=== PATIENT | male | born 1950 | race Native Hawaiian/Other Pacific Islander ===

== ENCOUNTER 2024-02-29 15:30 | Emergency (ER) | payer OTHER, SELFPAY ==
[2024-02-29] VITALS (7 sets, daily range): BP systolic 109–147; BP diastolic 63–67; PULSE 82–88; RESP 18; TEMP 36.6–37.9; O2SAT 93–99; BMI 29.7
--- NOTE | 2024-02-29 15:53 | DI.RAD.S_ITS ---
PROCEDURE: XR SHOULDER RT MIN 2V INDICATIONS: fall/pain TECHNIQUE: 3 views of the shoulder were acquired. COMPARISON: None. FINDINGS: Bones: No fractures or dislocations. Mild acromioclavicular and glenohumeral joint degeneration. No suspicious bony lesions. Visualized ribs appear intact. Soft tissues: No suspicious soft tissue calcifications. IMPRESSION: No acute bony abnormality. Dictated by: Lewis Tse M.D. on 02/29/2024 at 16:27 Approved by: Lewis Tse M.D. on 02/29/2024 at 16:28
--- NOTE | 2024-02-29 15:53 | DI.RAD.S_ITS ---
PROCEDURE: XR ELBOW RT 2V INDICATIONS: fall/pain TECHNIQUE: 2 views of the elbow were acquired. COMPARISON: None. FINDINGS: Bones: No fractures or dislocations. No suspicious bony lesions. Soft tissues: No elbow joint effusion. No suspicious soft tissue calcifications. IMPRESSION: No acute osseous abnormality. If pain persists with conservative management, consider repeat x-ray in 10-14 days or cross-sectional imaging. Dictated by: Lewis Tse M.D. on 02/29/2024 at 16:28 Approved by: Lewis Tse M.D. on 02/29/2024 at 16:29
--- NOTE | 2024-02-29 20:10 | ED.GENADULT ---
HPI - General Adult General Chief complaint: Extremity Injury, Upper Stated complaint: Fell off bed yesterday, Right shoulder pain Time Seen by Provider: 02/29/24 19:28 Source: patient Mode of arrival: Ambulatory History of Present Illness HPI narrative: 73-year-old male with reported history of lymphoma year old male with reported history of lymphoma, not on chemo or radiation presents by EMS from home for right shoulder pain. Patient stated that he fell out of bed yesterday but did not hit his head and landed on his right shoulder and his right elbow. Upon my evaluation patient is also complaining of generalized weakness, bilateral hamstring pain, and fatigue. Initial vitals notable for temperature of 98? F, when he was taken back to an ER bed his temperature was 100.3? Related Data Allergies Allergy/AdvReac Type Severity Reaction Status Date / Time No Known Drug Allergies Allergy Verified 02/29/24 15:48 Review of Systems Review of Systems Narrative: See HPI Patient History Social History Smoking Status: Never smoker Smoking Status: Never smoker Substance Use Type: does not use Exam Initial Vital Signs Initial Vital Signs: Vital Signs Temperature 98 F 02/29/24 15:48 Pulse Rate 87 02/29/24 15:48 Respiratory Rate 18 02/29/24 15:48 Blood Pressure 109/67 02/29/24 15:48 Pulse Oximetry 96 02/29/24 15:48 Oxygen Delivery Method Room Air 02/29/24 15:48 Const: Awake, alert, appears chronically unwell, fatigued Cardiac: regular rate, regular rhythm RESP: unlabored, clear bilaterally, no wheezing MSK: Generalized tenderness over right shoulder, no deformity, slight decreased ROM due to pain Skin: Warm, Dry, intact, no rashes Neuro: AO x3, CN II-XII grossly intact, moves all extremities Course Orders Ordered: ED Orders 02/29/24 20:09 EKG-12 Lead Stat Vital Signs Vital signs: Vital Signs - 8 hr 02/29/24 19:30 02/29/24 20:00 02/29/24 20:30 Pulse Rate 82 85 86 Respiratory Rate Blood Pressure Pulse Oximetry 97 95 94 02/29/24 21:00 02/29/24 22:18 Pulse Rate 88 85 Respiratory Rate 18 18 Blood Pressure 147/66 H Pulse Oximetry 93 99 Medical Decision Making Imaging Data Extremity x-ray #1: Radiologist's Impression: PROCEDURE: XR ELBOW RT 2V INDICATIONS: fall/pain TECHNIQUE: 2 views of the elbow were acquired. COMPARISON: None. FINDINGS: Bones: No fractures or dislocations. No suspicious bony lesions. Soft tissues: No elbow joint effusion. No suspicious soft tissue calcifications. IMPRESSION: No acute osseous abnormality. If pain persists with conservative management, consider repeat x-ray in 10-14 days or cross-sectional imaging. Dictated by: Lewis Tse M.D. on 02/29/2024 at 16:28 Approved by: Lewis Tse M.D. on 02/29/2024 at 16:29 Extremity x-ray #2: Radiologist's Impression: PROCEDURE: XR SHOULDER RT MIN 2V INDICATIONS: fall/pain TECHNIQUE: 3 views of the shoulder were acquired. COMPARISON: None. FINDINGS: Bones: No fractures or dislocations. Mild acromioclavicular and glenohumeral joint degeneration. No suspicious bony lesions. Visualized ribs appear intact. Soft tissues: No suspicious soft tissue calcifications. IMPRESSION: No acute bony abnormality. MDM Narrative Medical decision making narrative: Patient presents for evaluation of shoulder injury after falling out of bed yesterday. Neurologically intact, no obvious deformity. He was in his sling given to him by EMS for comfort. X-ray imaging shows no acute abnormalities, however when patient was taken back to ED bed his temperature increased from 98 F to 100.3 F. with patient's reported symptoms of weakness fatigue and muscle aches with fever and history of lymphoma this is concerning for other process that is ongoing. Patient declined all additional labs and imaging, stating that he was only here for his shoulder. He states that the fall has caused his temperature to increase, and he does not want any additional workup at this time. He reports being extremely frustrated that he has been in the emergency department for so long with no answers for why his shoulder hurts so bad. He states that he has trigeminal neuralgia and wants to go home so that he can take his usual pain medications. I tried to explain to the patient why based on his complaints additional workup would be beneficial, however he declined. Discharge Plan Departure Patient Disposition: Home Clinical Impression: Right shoulder strain Qualifiers: Encounter type: initial encounter Qualified Code(s): S46.911A - Strain of unspecified muscle, fascia and tendon at shoulder and upper arm level, right arm, initial encounter Instructions: DI for Shoulder Sprain Activity Restrictions/Additional Instructions: Take Tylenol and ibuprofen as needed for pain. Follow up with your primary care physician Stand Alone Forms: Patient Portal/API
== END 2024-02-29 22:20 | disposition home or self-care (01) ==
PROVIDERS: Emergency Provider Emergency Medicine
DX: S46.911A Strain of unspecified muscle, fascia and tendon at shoulder and upper arm level, right arm, initial encounter (principal); W06.XXXA Fall from bed, initial encounter
CPT/HCPCS: 73030; 73080; 99283

== ENCOUNTER 2024-04-27 13:05 | Emergency (ER) | payer OTHER, SELFPAY ==
[2024-04-27] VITALS (58 sets, daily range): BP systolic 94–141; BP diastolic 51–66; PULSE 63–167; RESP 12–45; TEMP 30.2–36.7; O2SAT 85–100; BMI 25.8
--- NOTE | 2024-04-27 13:13 | DI.RAD.S_ITS ---
PROCEDURE: XR CHEST 1V INDICATIONS: SOB TECHNIQUE: One view of the chest was acquired. COMPARISON: None. FINDINGS: Surgical changes and devices: None. Lungs and pleura: Moderate right pleural effusion. Patchy left middle and lower lung zone opacities. Mediastinum: Mediastinal contours appear normal. Heart size is normal. Bones and chest wall: No suspicious bony lesions. Overlying soft tissues appear unremarkable. IMPRESSION: Moderate right pleural effusion. Patchy left-sided opacities, concerning for aspiration or multifocal pneumonia. Dictated by: Padilla Neal M.D. on 04/27/2024 at 13:26 Approved by: Padilla Neal M.D. on 04/27/2024 at 13:28
--- NOTE | 2024-04-27 13:13 | EKG_ITS ---
[address] [id number] Test Date: 2024-04-27 Pat Name: Clarence Talley Department: Room: Gender: Male [employer]: JOSE : 1950 Requested By: Order Number: [id number] Reading MD: Chaz Calles Measurements Intervals [place] Rate: 167 P: [place]: QRS: -37 QRSD: 98 T: 124 QT: 292 QTc: 487 Interpretive Statements Critical Test Result: High HR Supraventricular tachycardia Left axis deviation Left ventricular hypertrophy with repolarization abnormality ( R in aVL , [place] product ) Cannot rule out Septal infarct , age undetermined Electronically Signed On 04-29-2024 9:45:02 PDT by Chaz Calles
[2024-04-27] MEDS: dilTIAZem 25 MG/5 ML SDV 10 MG IV (13:19)
--- NOTE | 2024-04-27 13:19 | ED.ARRPALP ---
HPI - Arrhythmia/Palpitations <Pedro Luis Chavez DO - Last Filed: 05/02/24 07:10> General Chief Complaint: Arrhythmia/Palpitations Stated Complaint: AFIB RVR Time Seen by Provider: 04/27/24 13:10 Source: patient and EMS Mode of arrival: Ambulatory History of Present Illness HPI narrative: 73-year-old male with a history of lymphoma. Is currently undergoing chemotherapy is here for evaluation of 3 days of shortness of breath and rapid heart rate. He states his symptoms actually worsened earlier today. No fevers. He called EMS this morning. Was found to be tachycardic and hypoxic. Was started on oxygen. He has no prior history of COPD. Does not use oxygen at home. Has never had a history of AFib. Was given 12 mg of adenosine prior to arrival. Was found to be in atrial flutter. Was then given 15 mg of diltiazem. Decreased his heart rate however quickly returned to the 160s. Related Data Allergies Allergy/AdvReac Type Severity Reaction Status Date / Time No Known Drug Allergies Allergy Verified 02/29/24 15:48 Review of Systems <Pedro Luis Chavez DO - Last Filed: 05/02/24 07:10> Review of Systems ROS Unobtainable: All systems reviewed & are unremarkable except as noted in HPI and below Patient History <Pedro Luis Chavez DO - Last Filed: 05/02/24 07:10> Social History Smoking Status: Never smoker Smoking Status: Never smoker Substance Use Type: does not use Exam <DO Hugo Yo Last Filed: 05/02/24 07:10> Initial Vital Signs Initial Vital Signs: Vital Signs Temperature 98.0 F 04/27/24 13:05 Pulse Rate 166 H 04/27/24 13:05 Respiratory Rate 38 H 04/27/24 13:05 Blood Pressure 110/61 04/27/24 13:05 Pulse Oximetry 85 L 04/27/24 13:05 Oxygen Delivery Method Room Air 04/27/24 13:05 Const General: cooperative and ill appearing [facility] Head: normal to inspection and normocephalic Resp Effort & Inspection: labored, no retractions and tachypneic Auscultation: clear to auscultation bilaterally Cardio Rate: tachycardic Rhythm: abnormal rhythm GI Inspection: normal to inspection Skin General: no rashes or lesions noted Neuro General: patient alert and patient awake <Rich New MD - Last Filed: 04/28/24 15:30> Initial Vital Signs Initial Vital Signs: Vital Signs Temperature 98.0 F 04/27/24 13:05 Pulse Rate 166 H 04/27/24 13:05 Respiratory Rate 38 H 04/27/24 13:05 Blood Pressure 110/61 04/27/24 13:05 Pulse Oximetry 85 L 04/27/24 13:05 Oxygen Delivery Method Room Air 04/27/24 13:05 Procedures <Pedro Luis Chavez DO - Last Filed: 05/02/24 07:10> Cardioversion Consent Signed: Yes Indication: Atrial flutter Stability: Unstable Number of attempts (shocks): 1 Joules used: 200 Cardiac rhythm post-cardioversion: Sinus rhythm Procedural Sedation Consent signed: No Time out performed: Yes Indication: cardioversion ASA Class: III Mallampati Airway Classification: Class II Preparation: school bus monitor applied, pulse oximeter, capnometry used, supplemental O2 applied, suction/airway equipment at bedside and IV secured IV Propofol dose (mg): 60 Intraservice time/total sedation time (min): 10 ED Sedation Level: Moderate (Concious) Patient Tolerated Procedure: Well and No complications Complications: none Additional Comments: Patient was unable to see secondary to a vision deficit. The patient gave verbal consent with multiple staff members in the room after explaining agreement and understanding plan Course <Pedro Lusi Chavez DO - Last Filed: 05/02/24 07:10> Orders Ordered: Discontinued Medications Albuterol (Albuterol 2.5 Mg/3 Ml Neb (Adult)) 2.5 mg INH NOW ONE Stop: 04/27/24 13:13 Last Admin: 04/27/24 13:25 Dose: 2.5 mg Documented By: FLY Albuterol/Ipratropium (Albuterol/Ipratropium 3 Ml Ampul) 3 ml INH NOW ONE Stop: 04/27/24 15:16 Last Admin: 04/27/24 15:17 Dose: 3 ml Documented By: LAWRENCE Albuterol/Ipratropium (Albuterol/Ipratropium 3 Ml Ampul) 3 ml INH NOW ONE Stop: 04/27/24 15:50 Last Admin: 04/27/24 17:02 Dose: 3 ml Documented By: LAWRENCE Albuterol/Ipratropium (Albuterol/Ipratropium 3 Ml Ampul) 3 ml INH NOW ONE Stop: 04/27/24 15:50 Last Admin: 04/27/24 17:01 Dose: 3 ml Documented By: LAWRENCE Diltiazem HCl (Diltiazem 25 Mg/5 Ml Sdv) 10 mg IV NOW ONE Stop: 04/27/24 13:13 Last Admin: 04/27/24 13:19 Dose: 10 mg Documented By: ROBERTO Sodium Chloride (Normal Saline 0.9%) 1,000 mls @ 125 mls/hr IV CONT KAMILAH Last Infusion: 04/27/24 18:45 Dose: Infused Documented By: Admin: 04/27/24 13:22 Dose: 125 mls/hr Documented By: ROBERTO DILTIAZEM (Diltiazem 125 Mg/125 Ml-D5w) 125 mg in 125 mls @ 5 mls/hr IV TITRATE KAMILAH; Protocol Last Titration: 04/27/24 14:05 Dose: Infused Documented By: Titration: 04/27/24 13:44 Dose: 15 mg/hr, 15 mls/hr Documented By: Titration: 04/27/24 13:31 Dose: 10 mg/hr, 10 mls/hr Documented By: Admin: 04/27/24 13:21 Dose: 5 mg/hr, 5 mls/hr Documented By: ROBERTO Amiodarone HCl/Dextrose (Nexterone) 150 mg in 100 mls @ 600 mls/hr IV NOW ONE; Protocol Stop: 04/27/24 13:40 Last Infusion: 04/27/24 14:15 Dose: Infused Documented By: Admin: 04/27/24 14:05 Dose: 600 mls/hr Documented By: ROBERTO Levofloxacin (Levaquin) 750 mg in 150 mls @ 100 mls/hr IV NOW ONE Stop: 04/27/24 18:28 Last Infusion: 04/27/24 19:00 Dose: Infused Documented By: Admin: 04/27/24 17:22 Dose: 100 mls/hr Documented By: ROBERTO Methylprednisolone (Methylprednisolone 125 Mg/2 Ml Vial) 125 mg IV NOW ONE Stop: 04/27/24 15:16 Last Admin: 04/27/24 16:13 Dose: 125 mg Documented By: ROBERTO Propofol (Propofol 200 Mg/20 Ml Vial) 200 mg IV NOW ONE Stop: 04/27/24 14:50 Last Admin: 04/27/24 15:10 Dose: 60 mg Documented By: MARBIN Vital Signs Vital signs: Vital Signs - 8 hr 04/27/24 19:00 04/27/24 19:00 04/27/24 19:30 Pulse Rate 92 H Respiratory Rate Blood Pressure 118/56 L 118/56 L Pulse Oximetry 94 Oxygen Delivery Method Oximask Oxygen Flow Rate 04/27/24 19:30 04/27/24 20:00 04/27/24 20:00 Pulse Rate 92 H 91 H Respiratory Rate 33 H Blood Pressure 123/60 Pulse Oximetry 94 94 Oxygen Delivery Method Oximask Oxygen Flow Rate 04/27/24 20:30 04/27/24 20:30 04/27/24 21:00 Pulse Rate 90 89 Respiratory Rate 33 H 32 H Blood Pressure 113/56 L Pulse Oximetry 95 96 Oxygen Delivery Method Oxygen Flow Rate 04/27/24 21:00 04/27/24 21:31 04/27/24 21:43 Pulse Rate 63 Respiratory Rate Blood Pressure 115/54 L 118/63 Pulse Oximetry 100 Oxygen Delivery Method Oxygen Flow Rate 04/27/24 21:43 04/27/24 22:00 04/27/24 22:00 Pulse Rate 92 H 89 Respiratory Rate 35 H 32 H Blood Pressure 117/56 L Pulse Oximetry 94 97 Oxygen Delivery Method Oxygen Flow Rate 04/27/24 22:30 04/27/24 23:00 04/27/24 23:01 Pulse Rate 88 91 H Respiratory Rate 31 H 33 H Blood Pressure 132/60 Pulse Oximetry 96 94 Oxygen Delivery Method Oxygen Flow Rate 04/27/24 23:01 04/27/24 23:30 04/28/24 00:00 Pulse Rate 91 H 88 Respiratory Rate 32 H 31 H Blood Pressure 127/59 L Pulse Oximetry 95 96 Oxygen Delivery Method Oxygen Flow Rate 04/28/24 00:00 04/28/24 01:28 04/28/24 01:30 Pulse Rate 87 92 H 91 H Respiratory Rate 31 H 35 H 34 H Blood Pressure Pulse Oximetry 93 Oxygen Delivery Method Oxygen Flow Rate 04/28/24 01:30 04/28/24 01:57 04/28/24 01:57 Pulse Rate 100 H Respiratory Rate 35 H Blood Pressure 128/61 107/59 L Pulse Oximetry 91 Oxygen Delivery Method Oxygen Flow Rate 04/28/24 02:00 04/28/24 02:00 04/28/24 02:30 Pulse Rate 96 H 91 H Respiratory Rate 33 H 31 H Blood Pressure 122/59 L Pulse Oximetry 91 96 Oxygen Delivery Method Oximask Oxygen Flow Rate 10 04/28/24 02:30 Pulse Rate Respiratory Rate Blood Pressure 124/62 Pulse Oximetry Oxygen Delivery Method Oxygen Flow Rate <Rich New MD - Last Filed: 04/28/24 15:30> Orders Ordered: Discontinued Medications Albuterol (Albuterol 2.5 Mg/3 Ml Neb (Adult)) 2.5 mg INH NOW ONE Stop: 04/27/24 13:13 Last Admin: 04/27/24 13:25 Dose: 2.5 mg Documented By: FLY Albuterol/Ipratropium (Albuterol/Ipratropium 3 Ml Ampul) 3 ml INH NOW ONE Stop: 04/27/24 15:16 Last Admin: 04/27/24 15:17 Dose: 3 ml Documented By: LAWRENCE Albuterol/Ipratropium (Albuterol/Ipratropium 3 Ml Ampul) 3 ml INH NOW ONE Stop: 04/27/24 15:50 Last Admin: 04/27/24 17:02 Dose: 3 ml Documented By: LAWRENCE Albuterol/Ipratropium (Albuterol/Ipratropium 3 Ml Ampul) 3 ml INH NOW ONE Stop: 04/27/24 15:50 Last Admin: 04/27/24 17:01 Dose: 3 ml Documented By: LAWRENCE Diltiazem HCl (Diltiazem 25 Mg/5 Ml Sdv) 10 mg IV NOW ONE Stop: 04/27/24 13:13 Last Admin: 04/27/24 13:19 Dose: 10 mg Documented By: ROBERTO Sodium Chloride (Normal Saline 0.9%) 1,000 mls @ 125 mls/hr IV CONT KAMILAH Last Infusion: 04/27/24 18:45 Dose: Infused Documented By: Admin: 04/27/24 13:22 Dose: 125 mls/hr Documented By: ROBERTO DILTIAZEM (Diltiazem 125 Mg/125 Ml-D5w) 125 mg in 125 mls @ 5 mls/hr IV TITRATE KAMILAH; Protocol Last Titration: 04/27/24 14:05 Dose: Infused Documented By: Titration: 04/27/24 13:44 Dose: 15 mg/hr, 15 mls/hr Documented By: Titration: 04/27/24 13:31 Dose: 10 mg/hr, 10 mls/hr Documented By: Admin: 04/27/24 13:21 Dose: 5 mg/hr, 5 mls/hr Documented By: ROBERTO Amiodarone HCl/Dextrose (Nexterone) 150 mg in 100 mls @ 600 mls/hr IV NOW ONE; Protocol Stop: 04/27/24 13:40 Last Infusion: 04/27/24 14:15 Dose: Infused Documented By: Admin: 04/27/24 14:05 Dose: 600 mls/hr Documented By: ROBERTO Levofloxacin (Levaquin) 750 mg in 150 mls @ 100 mls/hr IV NOW ONE Stop: 04/27/24 18:28 Last Infusion: 04/27/24 19:00 Dose: Infused Documented By: Admin: 04/27/24 17:22 Dose: 100 mls/hr Documented By: ROBERTO Methylprednisolone (Methylprednisolone 125 Mg/2 Ml Vial) 125 mg IV NOW ONE Stop: 04/27/24 15:16 Last Admin: 04/27/24 16:13 Dose: 125 mg Documented By: ROBERTO Propofol (Propofol 200 Mg/20 Ml Vial) 200 mg IV NOW ONE Stop: 04/27/24 14:50 Last Admin: 04/27/24 15:10 Dose: 60 mg Documented By: MARBIN Vital Signs Vital signs: Vital Signs - 8 hr 04/27/24 19:00 04/27/24 19:00 04/27/24 19:30 Pulse Rate 92 H Respiratory Rate Blood Pressure 118/56 L 118/56 L Pulse Oximetry 94 Oxygen Delivery Method Oximask Oxygen Flow Rate 10 04/27/24 19:30 04/27/24 20:00 04/27/24 20:00 Pulse Rate 92 H 91 H Respiratory Rate 33 H Blood Pressure 123/60 Pulse Oximetry 94 94 Oxygen Delivery Method Oximask Oxygen Flow Rate 10 04/27/24 20:30 04/27/24 20:30 04/27/24 21:00 Pulse Rate 90 89 Respiratory Rate 33 H 32 H Blood Pressure 113/56 L Pulse Oximetry 95 96 Oxygen Delivery Method Oxygen Flow Rate 04/27/24 21:00 04/27/24 21:31 04/27/24 21:43 Pulse Rate 63 Respiratory Rate Blood Pressure 115/54 L 118/63 Pulse Oximetry 100 Oxygen Delivery Method Oxygen Flow Rate 04/27/24 21:43 04/27/24 22:00 04/27/24 22:00 Pulse Rate 92 H 89 Respiratory Rate 35 H 32 H Blood Pressure 117/56 L Pulse Oximetry 94 97 Oxygen Delivery Method Oxygen Flow Rate 04/27/24 22:30 04/27/24 23:00 04/27/24 23:01 Pulse Rate 88 91 H Respiratory Rate 31 H 33 H Blood Pressure 132/60 Pulse Oximetry 96 94 Oxygen Delivery Method Oxygen Flow Rate 04/27/24 23:01 04/27/24 23:30 04/28/24 00:00 Pulse Rate 91 H 88 Respiratory Rate 32 H 31 H Blood Pressure 127/59 L Pulse Oximetry 95 96 Oxygen Delivery Method Oxygen Flow Rate 04/28/24 00:00 04/28/24 01:28 04/28/24 01:30 Pulse Rate 87 92 H 91 H Respiratory Rate 31 H 35 H 34 H Blood Pressure Pulse Oximetry 93 Oxygen Delivery Method Oxygen Flow Rate 04/28/24 01:30 04/28/24 01:57 04/28/24 01:57 Pulse Rate 100 H Respiratory Rate 35 H Blood Pressure 128/61 107/59 L Pulse Oximetry 91 Oxygen Delivery Method Oxygen Flow Rate 04/28/24 02:00 04/28/24 02:00 04/28/24 02:30 Pulse Rate 96 H 91 H Respiratory Rate 33 H 31 H Blood Pressure 122/59 L Pulse Oximetry 91 96 Oxygen Delivery Method Oximask Oxygen Flow Rate 04/28/24 02:30 Pulse Rate Respiratory Rate Blood Pressure 124/62 Pulse Oximetry Oxygen Delivery Method Oxygen Flow Rate MDM - Arrhythmia/Palpitations <Pedro Luis Chavez, DO - Last Filed: 05/02/24 07:10> Lab Data 04/27/24 13:16 04/27/24 13:16 Labs: Lab Results 04/27/24 04/27/24 04/27/24 Range/Units 13:16 13:35 17:23 WBC 11.0 (4.5-11.0) X10^3/uL RBC 4.11 L (4.5-5.9) X10^6/uL Hgb 13.6 (13.5-17.5) g/dL Hct 40.3 L (41-53) % MCV 98.3 (80-100) fL MCH 33.2 (26-34) PG MCHC 33.8 (30-36) % RDW 14.8 (11.6-14.8) % Plt Count 261 (150-400) X10^3/uL Neut % (Auto) 88.7 H (50-75) % Lymph % (Auto) 4.2 L (25-40) % [place] % (Auto) 5.7 (3-14) % Eos % (Auto) 0.5 L (2-4) % Baso % (Auto) 0.9 (0-2) % Neut # (Auto) 9700 H (5671-3298) /uL Lymph # (Auto) 500 L (6136-0832) /uL [place] # (Auto) 600 (0-900) /uL Eos # (Auto) 100 (0-450) /uL Baso # (Auto) 100 (0-100) /uL PT 12.9 H (9.4-12.5) SECONDS INR 1.1 (0.9-1.3) APTT 31 (25.1-36.5) SECONDS Sodium 133 L (137-145) mmol/L Potassium 4.4 (3.4-5.1) mmol/L Chloride 102 (98-107) mmol/L Carbon Dioxide 15 L (22-32) mmol/L BUN 12 (9-20) mg/dL Creatinine 0.62 L (0.66-1.25) mg/dL Estimated GFR > 60 (>60) mL/min BUN/Creatinine Ratio 19.4 (6-22) Glucose 206 H (80-110) mg/dL Lactate 1.9 (0.7-2.1) mmol/L Calcium 8.3 L (8.4-10.2) mg/dL Magnesium 2.0 (1.6-2.3) mg/dL Total Bilirubin 1.4 H (0.2-1.3) mg/dL AST 45 (17-59) IU/L ALT 15 (<50) IU/L Alkaline Phosphatase 79 (38-126) U/L Total Creatine Kinase 58 (55-170) U/L Troponin I 0.068 H (0.01-0.034) ng/mL NT-Pro-B Natriuret Pep 1710 H (<125) pg/mL Total Protein 7.4 (6.3-8.2) g/dL Albumin 4.0 (3.5-5.0) g/dL Globulin 3.4 (1.7-4.1) g/dL Albumin/Globulin Ratio 1.2 (1.0-2.8) Lipase 28 (23-300) U/L Procalcitonin 0.209 (<0.5) ng/mL SARS-CoV-2 (PCR) Negative (Negative) Influenza A (RT-PCR) Flu a negative (NEGATIVE) Influenza B (RT-PCR) Flu b negative (NEGATIVE) RSV (PCR) Negative (Negative) Imaging Data Chest x-ray: Radiologist's Impresson: PROCEDURE: XR CHEST 1V INDICATIONS: SOB TECHNIQUE: One view of the chest was acquired. COMPARISON: None. FINDINGS: Surgical changes and devices: None. Lungs and pleura: Moderate right pleural effusion. Patchy left middle and lower lung zone opacities. Mediastinum: Mediastinal contours appear normal. Heart size is normal. Bones and chest wall: No suspicious bony lesions. Overlying soft tissues appear unremarkable. IMPRESSION: Moderate right pleural effusion. Patchy left-sided opacities, concerning for aspiration or multifocal pneumonia. CT scan - chest: Radiologist's Impresson: PROCEDURE: CT ANGIO CHEST PE PROTOCOL INDICATIONS: Chest pain, shortness of breath, tachycardia TECHNIQUE: After the administration of intravenous contrast, 2 mm thick sections acquired from the pulmonary apices to the posterior costophrenic angles. 3-dimensional maximum intensity projection (MIP) coronal and sagittal reformats were then acquired through the thorax. For radiation dose reduction, the following was used: automated exposure control, adjustment of mA and/or kV according to patient size. COMPARISON: [facility], [place], PET NECK TO MID THIGH, 02/08/2024, 14:38. [facility], CT, CT ANGIO HEAD AND NECK, 01/05/2024, 15:23. FINDINGS: Image quality: Suboptimal due to motion artifact. Pulmonary arteries: Pulmonary arteries are normal in size, and demonstrate no intraluminal filling defects to suggest central pulmonary embolism. Lower Neck: No enlarged lymph nodes. Thyroid: No thyroid nodules which require sonographic follow up, per consensus guidelines. Axillae: No enlarged lymph nodes. Chest Wall: Unremarkable. Bones: Unremarkable. Lungs and Pleura: Large right pleural effusion with loculation. Suspected obstructive pneumonia of the right lower lobe and right middle lobe. The right bronchus intermedius is occluded. Diffuse ground-glass of the left lung. Right perihilar mass measures 7 x 4.2 centimeters, increased from prior. Heart: Heart size is normal. No pericardial effusion. Thoracic Vessels: No aortic aneurysm. Mediastinum and Molly: Worsening mediastinal adenopathy. Esophagus: No wall thickening. No hiatal hernia. Upper Abdomen: Growing right adrenal mass measuring 5 centimeter. IMPRESSION: No pulmonary embolus. Obstructive pneumonia of the right lower lobe and right middle lobe, caused by an obstructing right hilar mass which has grown since the prior exam. Moderate to large loculated right-sided pleural effusion could represent early empyema. Ground-glass in the left lung, which could represent drug reaction. Growing mediastinal lymph nodes, right hilar mass. This could represent pseudo progression versus progression. ECG Data Attestation: I personally reviewed and interpreted this ECG as follows: Interpretation: Supraventricular tachycardia Rate of 167 Left axis deviation LVH Nonspecific ST T wave changes Post cardioversion Sinus rhythm Ventricular rate 100 Normal axis LVH No ST T wave changes MDM Narrative Medical decision making narrative: Patient arrived in significant respiratory distress and tachycardic with a heart rate in the 160s. In the EMS he did receive adenosine and the review of those rhythm strips show that he was clearly in atrial flutter. He did seem to respond to the Cardizem so this was attempted 1st. He had no improvement of his heart rate with the bolus nor the drip. He was then switched to amiodarone. Received 150 mg of amiodarone with a again no response with his heart rate. Patient still remaining significantly short of breath. Requiring oxygen to maintain a grant oxygen saturations greater than 90s. Patient has not been hypotensive. I do feel that the patient would benefit from cardioversion despite the fact that he has never had AFib before and we are unsure as to how long that he has been in AFib. We did discuss the possibility of significant events such as causing a ischemic stroke because of formation of blood clots. Patient did expressed understanding and agreement with this. He could not see the consent form in order to sign it although I did go over with him. He gave verbal consent to do this procedure with multiple staff members in the room. After sedation and cardioversion his heart rate is now less than 100. He was diminished breath sounds on the right. Quite a bit of wheezing. Was given an albuterol treatment without any improvement. CT scan was ordered. Received a call from the radiologist stating that it looks like he was postobstructive right-sided pneumonia. He does not have leukocytosis. Lactate was negative. Blood cultures were obtained. Started on antibiotics. Patient also has ground-glass appearances on the left which could be concerning for pneumonitis based on his chemotherapy/immunotherapy treatment. Patient gets all of his care at the [facility] in [place]. Will attempt to transfer patient to this facility due to continuity of care. Care turned over to Dr. New to continue to evaluate until disposition can be met. Shaq, 04/27/2024, at 7:00 p.m., transfer of care note. Sign-out from Dr. Chavez. 69-year-old male with history of lymphoma, followed at [facility], 3 days' duration shortness of breath and palpitation symptoms. Arrived by EMS who attempted adenosine, atrial flutter underlying, with rapid ventricular res IV amiodarone, cardioverted after propofol 200 joules single shock, normal sinus rhythm, still persisting shortness of breath, wheezing on exam, SVN given, still quite dyspneic, CTA chest showed no PE but did show chest masses right middle lobe and right upper lobe, as well as some ground-glass changes left lobe areas. Blood culture sent, IV Levaquin antibiotic given. Patient on BiPAP, current settings 12/5, rate 12, 50% FiO2, with mid 90s saturation. No pulmonology on staff here, likely will need bronchoscopy, anticipate transfer. Waiting call back from the hospital at this time. Assumed care. <Rich New MD - Last Filed: 04/28/24 15:30> Lab Data Attestation: I reviewed the patient's lab results. Labs: Lab Results 04/27/24 04/27/24 04/27/24 Range/Units 13:16 13:35 17:23 WBC 11.0 (4.5-11.0) X10^3/uL RBC 4.11 L (4.5-5.9) X10^6/uL Hgb 13.6 (13.5-17.5) g/dL Hct 40.3 L (41-53) % MCV 98.3 (80-100) fL MCH 33.2 (26-34) PG MCHC 33.8 (30-36) % RDW 14.8 (11.6-14.8) % Plt Count 261 (150-400) X10^3/uL Neut % (Auto) 88.7 H (50-75) % Lymph % (Auto) 4.2 L (25-40) % [place] % (Auto) 5.7 (3-14) % Eos % (Auto) 0.5 L (2-4) % Baso % (Auto) 0.9 (0-2) % Neut # (Auto) 9700 H (2943-2625) /uL Lymph # (Auto) 500 L (2154-6100) /uL [place] # (Auto) 600 (0-900) /uL Eos # (Auto) 100 (0-450) /uL Baso # (Auto) 100 (0-100) /uL PT 12.9 H (9.4-12.5) SECONDS INR 1.1 (0.9-1.3) APTT 31 (25.1-36.5) SECONDS Sodium 133 L (137-145) mmol/L Potassium 4.4 (3.4-5.1) mmol/L Chloride 102 (98-107) mmol/L Carbon Dioxide 15 L (22-32) mmol/L BUN 12 (9-20) mg/dL Creatinine 0.62 L (0.66-1.25) mg/dL Estimated GFR > 60 (>60) mL/min BUN/Creatinine Ratio 19.4 (6-22) Glucose 206 H (80-110) mg/dL Lactate 1.9 (0.7-2.1) mmol/L Calcium 8.3 L (8.4-10.2) mg/dL Magnesium 2.0 (1.6-2.3) mg/dL Total Bilirubin 1.4 H (0.2-1.3) mg/dL AST 45 (17-59) IU/L ALT 15 (<50) IU/L Alkaline Phosphatase 79 (38-126) U/L Total Creatine Kinase 58 (55-170) U/L Troponin I 0.068 H (0.01-0.034) ng/mL NT-Pro-B Natriuret Pep 1710 H (<125) pg/mL Total Protein 7.4 (6.3-8.2) g/dL Albumin 4.0 (3.5-5.0) g/dL Globulin 3.4 (1.7-4.1) g/dL Albumin/Globulin Ratio 1.2 (1.0-2.8) Lipase 28 (23-300) U/L Procalcitonin 0.209 (<0.5) ng/mL SARS-CoV-2 (PCR) Negative (Negative) Influenza A (RT-PCR) Flu a negative (NEGATIVE) Influenza B (RT-PCR) Flu b negative (NEGATIVE) RSV (PCR) Negative (Negative) MDM Narrative Medical decision making narrative: Patient arrived in significant respiratory distress and tachycardic with a heart rate in the 160s. In the EMS he did receive adenosine and the review of those rhythm strips show that he was clearly in atrial flutter. He did seem to respond to the Cardizem so this was attempted 1st. He had no improvement of his heart rate with the bolus nor the drip. He was then switched to amiodarone. Received 150 mg of amiodarone with a again no response with his heart rate. Patient still remaining significantly short of breath. Requiring oxygen to maintain a grant oxygen saturations greater than 90s. Patient has not been hypotensive. I do feel that the patient would benefit from cardioversion despite the fact that he has never had AFib before and we are unsure as to how long that he has been in AFib. We did discuss the possibility of significant events such as causing a ischemic stroke because of formation of blood clots. Patient did expressed understanding and agreement with this. He could not see the consent form in order to sign it although I did go over with him. He gave verbal consent to do this procedure with multiple staff members in the room. After sedation and cardioversion his heart rate is now less than 100. He was diminished breath sounds on the right. Quite a bit of wheezing. Was given an albuterol treatment without any improvement. CT scan was ordered. Received a call from the radiologist stating that it looks like he was postobstructive right-sided pneumonia. He does not have leukocytosis. Lactate was negative. Blood cultures were obtained. Started on antibiotics. Patient also has ground-glass appearances on the left which could be concerning for pneumonitis based on his chemotherapy/immunotherapy treatment. Patient gets all of his care at the [facility] in [place]. Will attempt to transfer patient to this facility due to continuity of care. Care turned over to Dr. New to continue to evaluate until disposition can be met. Shaq, 04/27/2024, at 6:00 p.m., transfer of care note. Sign-out from Dr. Chavez. 69-year-old male with history of lymphoma, followed at [facility], 3 days' duration shortness of breath and palpitation symptoms. Arrived by EMS who attempted adenosine, atrial flutter underlying, with rapid ventricular res IV amiodarone, cardioverted after propofol 200 joules single shock, normal sinus rhythm, still persisting shortness of breath, wheezing on exam, SVN given, IV Solumedrol, still quite dyspneic, CTA chest showed no PE but did show chest masses right middle lobe and right upper lobe, as well as some ground-glass changes left lobe areas. Blood culture sent, IV Levaquin antibiotic given. Patient on BiPAP, current settings 12/5, rate 12, 50% FiO2, with mid 90s saturation. No pulmonology on staff here, likely will need bronchoscopy, anticipate transfer. Waiting call back from the hospital at this time. Assumed care. 1840, patient was not tolerating BiPAP, has facial pain due to trigeminal neuralgia, was transitioned from BiPAP mask to high-flow oxygen, tolerating well so far. Await call back from CT system, apparently his neurologist has number he produced, awaiting call back from CT system Oncology. Awaiting transfer, bed search in progress, [facility] consulted 0120, case discussed with Nieves Walker hospitalist Dr. Mata, accepts patient for transfer, anticipated transfer after 7:00 a.m. 0700, EMS here for transport to [facility] as planned Critical Care Time <Pedro Luis Chavez, DO - Last Filed: 05/02/24 07:10> Critical Care Time Critical Care Time: Yes Total Critical Care Time: 45 Attestation: The high probability of a clinically significant, sudden or life threatening deterioration of the [respiratory, cardiovascular] system(s) required my full and direct attention, intervention and personal management. The aggregate critical care time was [45] minutes. This time is in addition to time spent performing reported procedures but includes the following: [x] Data Review and interpretation [x] Patient assessment and monitoring of vital signs [x] Documentation [x] Medication orders and management Discharge Plan Departure Patient Disposition: [facility] Clinical Impression: Acute dyspnea, Acute respiratory distress, Atrial flutter with rapid ventricular response, Obstructive pneumonia, Lung mass
[2024-04-27] MEDS: DILTIAZEM 125 MG/125 ML PIGGYBACK IV (13:21)
[2024-04-27] MEDS: SODIUM CHLORIDE 0.9% 1,000 ML 125 ML IV (13:22)
[2024-04-27] MEDS: ALBUTEROL 2.5 MG/3 ML NEB (ADULT) INH (13:25)
[2024-04-27 13:28] LABS: Add Manual Diff / Slide Review NO; Basophils Absolute Auto 100 /uL (0-100); Basophils Percent Auto 0.9 % (0-2); Eosinophils Absolute Auto 100 /uL (0-450); Eosinophils Percent Auto 0.5 % (2-4); Hematocrit 40.3 % (41-53); Hemoglobin 13.6 g/dL (13.5-17.5); Lymphocytes Absolute Auto 500 /uL (1100-4500); Lymphocytes Percent Auto 4.2 % (25-40); Mean Corpuscular HGB Conc 33.8 % (30-36); Mean Corpuscular Hemoglobin 33.2 PG (26-34); Mean Corpuscular Volume 98.3 fL (80-100); Monocytes Absolute Auto 600 /uL (0-900); Monocytes Percent Auto 5.7 % (3-14); Neutrophils Absolute Auto 9700 /uL (1500-7000); Neutrophils Percent Auto 88.7 % (50-75); Platelet Count 261 X10^3/uL (150-400); Red Blood Cell Count 4.11 X10^6/uL (4.5-5.9); Red Cell Distribution Width 14.8 % (11.6-14.8)
[2024-04-27 13:33] LABS: INR 1.1 (0.9-1.3); Prothrombin Time 12.9 SECONDS (9.4-12.5)
[2024-04-27 13:35] LABS: PTT Partial Thromboplastin Tim 31 SECONDS (25.1-36.5)
[2024-04-27 13:38] LABS: Alanine Aminotransferase 15 IU/L (<50); Albumin Globulin Ratio 1.2 (1.0-2.8); Alkaline Phosphatase 79 U/L (38-126); BUN Creatinine Ratio 19.4 (6-22); Bilirubin Total 1.4 mg/dL (0.2-1.3); Blood Urea Nitrogen 12 mg/dL (9-20); Calcium 8.3 mg/dL (8.4-10.2); Carbon Dioxide 15 mmol/L (22-32); Chloride 102 mmol/L (98-107); Creatine Kinase 58 U/L (55-170); Estimated Glomerular Filt Rate > 60 mL/min (>60); Globulin 3.4 g/dL (1.7-4.1); Glucose 206 mg/dL (80-110); Lipase 28 U/L (23-300); Sodium 133 mmol/L (137-145); Total Protein 7.4 g/dL (6.3-8.2)
[2024-04-27 13:42] LABS: HEMOLYSIS 87 (0-50); Potassium 4.4 mmol/L (3.4-5.1)
[2024-04-27 13:45] LABS: Aspartate Aminotransferase 45 IU/L (17-59)
[2024-04-27 13:50] LABS: NT-proBNP (BNP-Adult 18+) 1710 pg/mL (<125); Troponin I 0.068 ng/mL (0.01-0.034)
[2024-04-27] MEDS: AMIODARONE 150 MG/100 ML PIGGYBACK 600 MG IV (14:05)
[2024-04-27 14:17] LABS: Influenza A - CEPHEID Flu A NEGATIVE (NEGATIVE); Influenza B - CEPHEID Flu B NEGATIVE (NEGATIVE); Respiratory Syncytial Virus Negative (Negative)
[2024-04-27 14:18] LABS: COVID-19 CEPHEID 4-PLEX PCR Negative (Negative)
[2024-04-27] MEDS: propofoL 200 MG/20 ML VIAL IV (15:10)
[2024-04-27] MEDS: ALBUTEROL/IPRATROPIUM 3 ML AMPUL INH ×3 (15:17→17:02)
--- NOTE | 2024-04-27 15:32 | PC.NURSE ---
RN, RT & Dr at bedside. Pt requiring 6L NC and 15L NRB prior to procedure. Time Out called @1508. 60mg of propofol pushed by Dr Chavez at 1510 and 1 shock 200 joules delivered. Pt rhythm NSR w/ HR of 95. Pt tolerated procedure well. Pt continues abd breathing and tachypneic. Pt now on 10L oxymask. Pt still having difficulty speaking in full sentences and significant work of breathing noted. repeat EKG done. pt a&ox4.
--- NOTE | 2024-04-27 15:34 | RT ---
Called to bedside for Cardioversion. Bag mask unit, suction and oral airway at [facility]. Pt annmarie well, on 15lpm nrb and 6 lpm nc. post cardioversion pt on 10 lpm oxi-mask. SOB still noted.
--- NOTE | 2024-04-27 15:38 | EKG_ITS ---
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
--- NOTE | 2024-04-27 15:44 | RT ---
pt tolneb tx well,on 10lpm oximask
--- NOTE | 2024-04-27 15:50 | DI.CT.S_ITS ---
PROCEDURE: CT ANGIO CHEST PE PROTOCOL INDICATIONS: Chest pain, shortness of breath, tachycardia TECHNIQUE: After the administration of intravenous contrast, 2 mm thick sections acquired from the pulmonary apices to the posterior costophrenic angles. 3-dimensional maximum intensity projection (MIP) coronal and sagittal reformats were then acquired through the thorax. For radiation dose reduction, the following was used: automated exposure control, adjustment of mA and/or kV according to patient size. COMPARISON: [facility], [place], PET NECK TO MID THIGH, 02/08/2024, 14:38. [facility], CT, CT ANGIO HEAD AND NECK, 01/05/2024, 15:23. FINDINGS: Image quality: Suboptimal due to motion artifact. Pulmonary arteries: Pulmonary arteries are normal in size, and demonstrate no intraluminal filling defects to suggest central pulmonary embolism. Lower Neck: No enlarged lymph nodes. Thyroid: No thyroid nodules which require sonographic follow up, per consensus guidelines. Axillae: No enlarged lymph nodes. Chest Wall: Unremarkable. Bones: Unremarkable. Lungs and Pleura: Large right pleural effusion with loculation. Suspected obstructive pneumonia of the right lower lobe and right middle lobe. The right bronchus intermedius is occluded. Diffuse ground-glass of the left lung. Right perihilar mass measures 7 x 4.2 centimeters, increased from prior. Heart: Heart size is normal. No pericardial effusion. Thoracic Vessels: No aortic aneurysm. Mediastinum and Molly: Worsening mediastinal adenopathy. Esophagus: No wall thickening. No hiatal hernia. Upper Abdomen: Growing right adrenal mass measuring 5 centimeter. IMPRESSION: No pulmonary embolus. Obstructive pneumonia of the right lower lobe and right middle lobe, caused by an obstructing right hilar mass which has grown since the prior exam. Moderate to large loculated right-sided pleural effusion could represent early empyema. Ground-glass in the left lung, which could represent drug reaction. Growing mediastinal lymph nodes, right hilar mass. This could represent pseudo progression versus progression. Dictated by: Padilla Neal M.D. on 04/27/2024 at 16:53 Approved by: Padilla Neal M.D. on 04/27/2024 at 17:00
[2024-04-27] MEDS: methylPREDNISolone 125 MG/2 ML VIAL IV (16:13)
[2024-04-27] MEDS: levoFLOXacin 750 MG/150 ML PIGGYBACK 100 MG IV (17:22)
[2024-04-27 17:42] LABS: Lactate (Lactic Acid) 1.9 mmol/L (0.7-2.1)
--- NOTE | 2024-04-27 17:54 | RT ---
pt annmarie neb tx well, tx given via aerogen.
[2024-04-27 18:00] LABS: Procalcitonin 0.209 ng/mL (<0.5)
--- NOTE | 2024-04-27 19:46 | PC.NURSE ---
Introduced self to pt at this time. Cleaned up room and packed pt belongings in bag. Updated pt on plan at this time. Tech assisted with pt request for 2 more pillows for comfort.
--- NOTE | 2024-04-27 21:46 | PC.NURSE ---
Pt needs to be transferred out for a higher level of care. Currently there are no beds available and [facility] has been contacted at [phone]. Since we are waiting for an accepting facility, the patient was moved into a hospital bed for comfort. LEIA Gabriel and Genna helped bring the bed in for the pt and placed the bed right next to the stretcher so he could easily slide over into the new bed. Pt transferred into the bed at his own pace with several breaks in between each movement. Pt experienced SOB with little excretion during the transfer. Once the patient was safely in the hospital bed, placed the pt back on the vital monitor and made sure that the call light was within reach as well as any other belongings that the pt wanted at the time.
[2024-04-28] VITALS (14 sets, daily range): BP systolic 107–130; BP diastolic 57–63; PULSE 86–100; RESP 29–36; O2SAT 91–97
== END 2024-04-28 07:19 | disposition short-term general hospital (02) ==
PROVIDERS: Emergency Medicine; Emergency Provider Emergency Medicine
DX: I48.92 Unspecified atrial flutter (principal); I47.10 Supraventricular tachycardia, unspecified; R06.00 Dyspnea, unspecified; R06.03 Acute respiratory distress; J18.9 Pneumonia, unspecified organism; R91.8 Other nonspecific abnormal finding of lung field; R06.02 Shortness of breath; Z11.52 Encounter for screening for COVID-19
CPT/HCPCS: 0241U; 36415; 71045; 71275; 80053; 82550; 83605; 83690; 83735; 83880; 84145; 84484; 85025; 85610; 85730; 87040; 92960; 93005; 94640; 94660; 96365; 96366; 96367; 96375; 99285; 99291; J0282; J1956; J2704; J2919; J7613; Q9967

== ENCOUNTER 2024-08-07 15:43 | Emergency (ER) | payer OTHER, SELFPAY ==
[2024-04-27 16:45] VITALS: PULSE 96; RESP 35; O2SAT 96
[2024-08-07] VITALS (33 sets, daily range): BP systolic 106–131; BP diastolic 55–60; PULSE 93–117; RESP 23–48; O2SAT 88–99; BMI 20.9
--- NOTE | 2024-08-07 15:48 | DI.RAD.S_ITS ---
PROCEDURE: XR CHEST 1V INDICATIONS: Shortness of breath TECHNIQUE: One view of the chest was acquired. COMPARISON: [facility], , XR CHEST 1V, 04/27/2024, 13:12. FINDINGS: Surgical changes and devices: Left central line with tip projecting over the lower SVC. Lungs and pleura: Very low lung volumes. [id number] right effusion and underlying consolidation, increased. Mediastinum: Heart size is at the upper limit of normal, unchanged. Bones and chest wall: Degenerative findings IMPRESSION: Very low lung volumes limit evaluation on this single view study. Right lung consolidation and effusion, increased, likely infectious/inflammatory. Consider future imaging surveillance to assess for resolution. Dictated by: Vega Flood M.D. on 08/07/2024 at 16:47 Approved by: Vega Flood M.D. on 08/07/2024 at 16:48
--- NOTE | 2024-08-07 15:56 | EKG_ITS ---
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
--- NOTE | 2024-08-07 16:07 | PC.NURSE ---
Patient with SOB, able to speak in 2-3 words at a time but increase of work of breathing with exertion and speaking. At rest without speaking at 31 RPM, abdominal breathing and intercostal retractions at bottom ribs. Requiring 1.5L O2 by NC for saturation of 96%, 88% on RA without. With speaking/exertion increase RPM to 40-45. Patient denies orthopnea at home or other symptoms except intermittent right chest pain at 3 out of 10. Lung sounds diminished on right, clear on left. Evaluated by RT upon arrival to ED. Patient does not use home O2, hx of lymphoma which he has an upper left arm triple lumen PICC. PICC flushes easily and has blood return.
[2024-08-07] MEDS: ALBUTEROL/IPRATROPIUM 3 ML AMPUL INH (16:20)
[2024-08-07] MEDS: methylPREDNISolone 125 MG/2 ML VIAL IV (16:20)
[2024-08-07 16:22] LABS: Hematocrit 37.2 % (41-53); Hemoglobin 12.2 g/dL (13.5-17.5); Mean Corpuscular HGB Conc 32.8 % (30-36); Mean Corpuscular Hemoglobin 29.4 PG (26-34); Mean Corpuscular Volume 89.7 fL (80-100); Platelet Count 353 X10^3/uL (150-400); Red Blood Cell Count 4.15 X10^6/uL (4.5-5.9); Red Cell Distribution Width 18.4 % (11.6-14.8); White Blood Cell Count 14.4 X10^3/uL (4.5-11.0)
[2024-08-07 16:23] LABS: Add Manual Diff / Slide Review YES; Prothrombin Time 11.9 SECONDS (9.4-12.5)
[2024-08-07 16:28] LABS: Alanine Aminotransferase 12 IU/L (<50); Alkaline Phosphatase 97 U/L (38-126); Aspartate Aminotransferase 23 IU/L (17-59); BUN Creatinine Ratio 11.1 (6-22); Bilirubin Total 0.8 mg/dL (0.2-1.3); Blood Urea Nitrogen 7 mg/dL (9-20); Calcium 8.6 mg/dL (8.4-10.2); Carbon Dioxide 29 mmol/L (22-32); Chloride 93 mmol/L (98-107); Estimated Glomerular Filt Rate > 60 mL/min (>60); Glucose 167 mg/dL (80-110); HEMOLYSIS < 15 (0-50); Lactate (Lactic Acid) 2.6 mmol/L (0.7-2.1); Sodium 135 mmol/L (137-145)
[2024-08-07 16:40] LABS: NT-proBNP (BNP-Adult 18+) 583 pg/mL (<125)
[2024-08-07 16:44] LABS: Neutrophils Absolute Manual 10656 /uL (3000-5900); Total Cells Counted 100
[2024-08-07 16:45] LABS: Anisocytosis 2+
[2024-08-07 16:47] LABS: Potassium 2.6 mmol/L (3.4-5.1)
--- NOTE | 2024-08-07 16:53 | ED_ITS ---
HPI - SOB/Dyspnea <Rich New MD - Last Filed: 08/08/24 07:30> General Chief Complaint: Shortness of Breath/Dyspnea Stated Complaint: SOB Time Seen by Provider: 08/07/24 15:59 Source: patient and EMS Mode of arrival: EMS History of Present Illness HPI Narrative: 73-year-old male reports history of lung cancer and lymphoma (2 primaries or unclear if lymphoma has lung component lesions) diagnosis April 2024, has been receiving chemotherapy via PICC line, now with 2 days duration increasing shortness of breath, not usually on oxygen, transport by EMS, given SVN EN route. Significantly short of breath, respiratory rate 30s. No fall, injury. No tcoughing up blood, not much coughing. Denies pain to his chest. Related Data Allergies Allergy/AdvReac Type Severity Reaction Status Date / Time No Known Drug Allergies Allergy Verified 08/07/24 15:49 Review of Systems <Rich New MD - Last Filed: 08/08/24 07:30> Review of Systems Narrative: see HPI Patient History <Rich New MD - Last Filed: 08/08/24 07:30> Social History Smoking Status: Never smoker Smoking Status: Never smoker Substance Use Type: does not use Exam <Rich New MD - Last Filed: 08/08/24 07:30> Narrative Exam Narrative: GENERAL: Well-developed patient, in mild distress. HEAD: Atraumatic. Normocephalic. EYES: Pupils equal round and reactive. Extraocular motions intact. No scleral icterus. No injection or drainage. ENT: Nose without bleeding, purulent drainage. Throat without erythema, tonsillar hypertrophy or exudate. Airway patent. NECK: Trachea midline. Non tender CARDIOVASCULAR: Fast rate regular rhythm without murmurs, gallops, or rubs. RESPIRATORY: Retractions intercostal and suprasternal, wheeze bilateral end expiratory, no obvious crackles. Tachypnea. Speaks in full sentences GASTROINTESTINAL: Abdomen soft, non-tender, nondistended. EXTREMITIES: No edema or joint tenderness. BACK: Nontender without deformity or crepitance. No flank tenderness. NEURO: AOx3. Motor functions grossly nonfocal SKIN: No rash or erythema of visible areas Initial Vital Signs Initial Vital Signs: Vital Signs Pulse Rate 117 H 08/07/24 15:50 Respiratory Rate 40 H 08/07/24 15:50 Blood Pressure 108/59 L 08/07/24 15:50 Pulse Oximetry 88 L 08/07/24 15:50 Oxygen Delivery Method Room Air 08/07/24 15:50 <Dalia Richey DO - Last Filed: 08/08/24 04:01> Initial Vital Signs Initial Vital Signs: Vital Signs Pulse Rate 117 H 08/07/24 15:50 Respiratory Rate 40 H 08/07/24 15:50 Blood Pressure 108/59 L 08/07/24 15:50 Pulse Oximetry 88 L 08/07/24 15:50 Oxygen Delivery Method Room Air 08/07/24 15:50 Course <Rich New MD - Last Filed: 08/08/24 07:30> Orders Ordered: Discontinued Medications Albuterol/Ipratropium (Albuterol/Ipratropium 3 Ml Ampul) 3 ml INH NOW ONE Stop: 08/07/24 16:00 Last Admin: 08/07/24 16:20 Dose: 3 ml Documented By: IDA Doxycycline Hyclate (Doxycycline Hyclate 100 Mg Tablet) 100 mg PO NOW ONE Stop: 08/07/24 16:53 Last Admin: 08/07/24 17:22 Dose: 100 mg Documented By: IDA POTASSIUM CHLORIDE IN WATER (Potassium Cl 10 Meq/100 Ml Gosia) 10 meq in 100 mls @ 100 mls/hr IV Q1H KAMILAH Stop: 08/07/24 18:59 Last Infusion: 08/07/24 20:43 Dose: Infused Documented By: Admin: 08/07/24 19:41 Dose: 100 mls/hr Documented By: Infusion: 08/07/24 19:41 Dose: Infused Documented By: Admin: 08/07/24 18:43 Dose: 100 mls/hr Documented By: IDA Ceftriaxone Sodium 1,000 mg/ (Sodium Chloride) 100 mls @ 200 mls/hr IV NOW ONE Stop: 08/07/24 16:53 Last Infusion: 08/07/24 18:45 Dose: Infused Documented By: Admin: 08/07/24 17:22 Dose: 200 mls/hr Documented By: IDA Methylprednisolone (Methylprednisolone 125 Mg/2 Ml Vial) 125 mg IV NOW ONE Stop: 08/07/24 16:01 Last Admin: 08/07/24 16:20 Dose: 125 mg Documented By: IDA Potassium Chloride (Potassium Chloride 20 Meq/15 Ml Udc) 40 meq PO NOW ONE Stop: 08/07/24 16:51 Last Admin: 08/07/24 17:16 Dose: 40 meq Documented By: CARLINE Vital Signs Vital signs: Vital Signs - 8 hr 08/07/24 23:30 08/07/24 23:30 08/08/24 00:00 Pulse Rate 96 H Respiratory Rate 26 H Blood Pressure 116/59 L 106/58 L Pulse Oximetry 97 Oxygen Flow Rate 08/08/24 00:00 08/08/24 00:30 08/08/24 00:30 Pulse Rate 93 H 90 90 Respiratory Rate 27 H 22 26 H Blood Pressure 112/57 L Pulse Oximetry 91 97 98 Oxygen Flow Rate 2 <Dalia Richey, - Last Filed: 08/08/24 04:01> Orders Ordered: Discontinued Medications Albuterol/Ipratropium (Albuterol/Ipratropium 3 Ml Ampul) 3 ml INH NOW ONE Stop: 08/07/24 16:00 Last Admin: 08/07/24 16:20 Dose: 3 ml Documented By: IDA Doxycycline Hyclate (Doxycycline Hyclate 100 Mg Tablet) 100 mg PO NOW ONE Stop: 08/07/24 16:53 Last Admin: 08/07/24 17:22 Dose: 100 mg Documented By: IDA POTASSIUM CHLORIDE IN WATER (Potassium Cl 10 Meq/100 Ml Gosia) 10 meq in 100 mls @ 100 mls/hr IV Q1H KAMILAH Stop: 08/07/24 18:59 Last Infusion: 08/07/24 20:43 Dose: Infused Documented By: Admin: 08/07/24 19:41 Dose: 100 mls/hr Documented By: Infusion: 08/07/24 19:41 Dose: Infused Documented By: Admin: 08/07/24 18:43 Dose: 100 mls/hr Documented By: IDA Ceftriaxone Sodium 1,000 mg/ (Sodium Chloride) 100 mls @ 200 mls/hr IV NOW ONE Stop: 08/07/24 16:53 Last Infusion: 08/07/24 18:45 Dose: Infused Documented By: Admin: 08/07/24 17:22 Dose: 200 mls/hr Documented By: IDA Methylprednisolone (Methylprednisolone 125 Mg/2 Ml Vial) 125 mg IV NOW ONE Stop: 08/07/24 16:01 Last Admin: 08/07/24 16:20 Dose: 125 mg Documented By: IDA Potassium Chloride (Potassium Chloride 20 Meq/15 Ml Udc) 40 meq PO NOW ONE Stop: 08/07/24 16:51 Last Admin: 08/07/24 17:16 Dose: 40 meq Documented By: CARLINE Vital Signs Vital signs: Vital Signs - 8 hr 08/07/24 23:30 08/07/24 23:30 08/08/24 00:00 Pulse Rate 96 H Respiratory Rate 26 H Blood Pressure 116/59 L 106/58 L Pulse Oximetry 97 Oxygen Flow Rate 08/08/24 00:00 08/08/24 00:30 08/08/24 00:30 Pulse Rate 93 H 90 90 Respiratory Rate 27 H 22 26 H Blood Pressure 112/57 L Pulse Oximetry 91 97 98 Oxygen Flow Rate 2 MDM - SOB/Dyspnea <Rich New MD - Last Filed: 08/08/24 07:30> Lab Data 08/07/24 16:00 08/07/24 16:00 Labs: Lab Results 08/07/24 08/07/24 08/07/24 Range/Units 16:00 16:19 17:55 WBC 14.4 H (4.5-11.0) X10^3/uL RBC 4.15 L (4.5-5.9) X10^6/uL Hgb 12.2 L (13.5-17.5) g/dL Hct 37.2 L (41-53) % MCV 89.7 (80-100) fL MCH 29.4 (26-34) PG MCHC 32.8 (30-36) % RDW 18.4 H (11.6-14.8) % Plt Count 353 (150-400) X10^3/uL Neut % (Auto) Not Reportable Lymph % (Auto) Not Reportable [place] % (Auto) Not Reportable Eos % (Auto) Not Reportable Baso % (Auto) Not Reportable Lymph # (Auto) Not Reportable [place] # (Auto) Not Reportable Baso # (Auto) Not Reportable Total Counted 100 Seg Neutrophils % 65.0 (38-70) % Band Neutrophils % 9.0 H (3-7) % Lymphocytes % (Manual) 18.0 L (25-45) % Monocytes % (Manual) 5.0 (2-11) % Metamyelocytes % 3.0 H (-0) % Neutrophils # (Manual) 83884 H (5857-4478) /uL RBC Morphology See below Anisocytosis 2+ H PT 11.9 (9.4-12.5) SECONDS INR 1.0 (0.9-1.3) ABG pH 7.50 H (7.35-7.45) ABG pCO2 31.1 L (35-45) mmHg ABG pO2 73 L (80-100) mmHg ABG HCO3 24 (23-27) mmol/L ABG Total CO2 24 (23-27) mmol/L ABG O2 Saturation 96 (95-100) % ABG Base Excess 1.9 (-2-3) mmol/L Chaz Test Positive O2 Delivery Device Cannula FiO2 % 28.0 % % Sodium 135 L (137-145) mmol/L Potassium 2.6 L* (3.4-5.1) mmol/L Chloride 93 L (98-107) mmol/L Carbon Dioxide 29 (22-32) mmol/L BUN 7 L (9-20) mg/dL Creatinine 0.63 L (0.66-1.25) mg/dL Estimated GFR > 60 (>60) mL/min BUN/Creatinine Ratio 11.1 (6-22) Glucose 167 H (80-110) mg/dL Lactate 2.6 H (0.7-2.1) mmol/L Calcium 8.6 (8.4-10.2) mg/dL Total Bilirubin 0.8 (0.2-1.3) mg/dL AST 23 (17-59) IU/L ALT 12 (<50) IU/L Alkaline Phosphatase 97 (38-126) U/L Troponin I 0.020 (0.01-0.034) ng/mL NT-Pro-B Natriuret Pep 583 H (<125) pg/mL Total Protein 6.0 L (6.3-8.2) g/dL Albumin 3.0 L (3.5-5.0) g/dL Globulin 3.0 (1.7-4.1) g/dL Albumin/Globulin Ratio 1.0 (1.0-2.8) Chlamy pneumoniae PCR Not detected (Not Detect) Adenovirus (PCR) Not detected (Not Detect) B. pertussis DNA (PCR) Not detected (Not Detect) B.parapertussis DNA PCR Not detected (Not Detecte) Coronavirus OC43 (PCR) Not detected (Not Detect) Coronavirus HKU1 (PCR) Not detected (Not Detect) Coronavirus 229E (PCR) Not detected (Not Detect) SARS-CoV-2 (PCR) Not detected (Not Detecte) Coronavirus NL63 (PCR) Not detected (Not Detect) Human Metapneumovir PCR Not detected (Not Detect) Influenza Type A (PCR) Not detected (Not Detect) Influenza Type B (PCR) Not detected (Not Detect) M. pneumoniae (PCR) Not detected (Not Detect) Parainfluenza 1 (PCR) Not detected (Not Detect) Parainfluenza 2 (PCR) Not detected (Not Detect) Parainfluenza 3 (PCR) Not detected (Not Detect) Parainfluenza 4 (PCR) Not detected (Not Detect) RSV (PCR) Not detected (Not Detect) Entero/Rhino (PCR) Not detected (Not Detect) 08/07/24 Range/Units 18:07 WBC (4.5-11.0) X10^3/uL RBC (4.5-5.9) X10^6/uL Hgb (13.5-17.5) g/dL Hct (41-53) % MCV (80-100) fL MCH (26-34) PG MCHC (30-36) % RDW (11.6-14.8) % Plt Count (150-400) X10^3/uL Neut % (Auto) Lymph % (Auto) [place] % (Auto) Eos % (Auto) Baso % (Auto) Lymph # (Auto) [place] # (Auto) Baso # (Auto) Total Counted Seg Neutrophils % (38-70) % Band Neutrophils % (3-7) % Lymphocytes % (Manual) (25-45) % Monocytes % (Manual) (2-11) % Metamyelocytes % (-0) % Neutrophils # (Manual) (0660-0416) /uL RBC Morphology Anisocytosis PT (9.4-12.5) SECONDS INR (0.9-1.3) ABG pH (7.35-7.45) ABG pCO2 (35-45) mmHg ABG pO2 (80-100) mmHg ABG HCO3 (23-27) mmol/L ABG Total CO2 (23-27) mmol/L ABG O2 Saturation (95-100) % ABG Base Excess (-2-3) mmol/L Chaz Test O2 Delivery Device FiO2 % % Sodium (137-145) mmol/L Potassium (3.4-5.1) mmol/L Chloride (98-107) mmol/L Carbon Dioxide (22-32) mmol/L BUN (9-20) mg/dL Creatinine (0.66-1.25) mg/dL Estimated GFR (>60) mL/min BUN/Creatinine Ratio (6-22) Glucose (80-110) mg/dL Lactate 2.4 H (0.7-2.1) mmol/L Calcium (8.4-10.2) mg/dL Total Bilirubin (0.2-1.3) mg/dL AST (17-59) IU/L ALT (<50) IU/L Alkaline Phosphatase (38-126) U/L Troponin I 0.015 (0.01-0.034) ng/mL NT-Pro-B Natriuret Pep (<125) pg/mL Total Protein (6.3-8.2) g/dL Albumin (3.5-5.0) g/dL Globulin (1.7-4.1) g/dL Albumin/Globulin Ratio (1.0-2.8) Chlamy pneumoniae PCR (Not Detect) Adenovirus (PCR) (Not Detect) B. pertussis DNA (PCR) (Not Detect) B.parapertussis DNA PCR (Not Detecte) Coronavirus OC43 (PCR) (Not Detect) Coronavirus HKU1 (PCR) (Not Detect) Coronavirus 229E (PCR) (Not Detect) SARS-CoV-2 (PCR) (Not Detecte) Coronavirus NL63 (PCR) (Not Detect) Human Metapneumovir PCR (Not Detect) Influenza Type A (PCR) (Not Detect) Influenza Type B (PCR) (Not Detect) M. pneumoniae (PCR) (Not Detect) Parainfluenza 1 (PCR) (Not Detect) Parainfluenza 2 (PCR) (Not Detect) Parainfluenza 3 (PCR) (Not Detect) Parainfluenza 4 (PCR) (Not Detect) RSV (PCR) (Not Detect) Entero/Rhino (PCR) (Not Detect) ECG Data Attestation: I personally reviewed and interpreted this ECG as follows: Interpretation: Sinus tachycardia with rate 111, no obvious ST segment elevation or depression changes. PA 128, QRS 100, QTC 514 prolonged. MDM Narrative Medical decision making narrative: 73-year-old male with history of COPD, prior episode of atrial fibrillation, history of lymphoma, March 2024 CTA study showed obstructive pneumonia changes, was given antibiotics at that time, transferred to [facility] for further evaluation. No discharged home or information available. Patient believes he has history of lymphoma including lung cancer, unclear if there are 2 primary cancers or if lymphoma involves long as well. Records requested from [facility]. He is not usually on oxygen, has low sats by EMS, currently on 2 liters/minute oxygen. In respiratory distress with respiratory rate 30s. Previous evaluation March 2024 did not tolerate BiPAP due to trigeminal neuralgia facial pain. ABG requested. EKG, chest x-ray, labs pending. CTA chest ordered if GFR favorable, evaluate masses, and/or blood clots, increased risks due to underlying neoplasia. ABG shows no acidosis, Pao2 70s on 2l oxygen Chest x-ray shows right-sided pulmonary infiltrate, see radiology report. IV ceftriaxone, p.o. doxycycline, after blood cultures. Respiratory panel negative. GFR favorable, CTA chest order placed. 1814, CTA Chest report pending, signed out to Dr Richey 08/07/24 Dr. Richey: Patient signed out to myself CTA was pending, lactate and troponin are also pending. Patient is tachypneic, short of breath, decreased right greater than left. History was reviewed patient was seen and independently evaluated by myself. He notes that he does not wish for intubation. CTA shows no acute PE, interval placement and oblique real stent in the right mainstem bronchus with intraluminal soft tissue density. Complete collapse of right middle lobe consistent with previously reported right hilar mass increased mass effect on proximal segments right pulmonary artery without evidence for occlusion suggest continued disease progression right hilar mass feels more prominent, multiple large mediastinal lymph nodes compressive atelectasis involving right upper and middle lobes. Partially imaged right adrenal mass before. Improved but persistent ground-glass opacities left hemothorax could represent infectious or inflammatory process. Patient states Dr. Dyer through [facility] has been trying to get him to their facility. He would prefer to go there if available he had original stent in his long placed [facility] around March of 2024. Discussed patient is currently on 2 L but still quite tachypneic may require high-flow at some point but has not so far. Dr. Mccauley, hospitalist at [facility] reviewed patient, she will consult with stock supervisor about ICU placement. Re-contacted and patient was accepted by Dr. Mccauley for transfer to [facility]. [facility] states they will arrange transport. Recheck prior to transport, patient is still tachypneic has not had any increasing O2 requirements has not had increased work of breathing they tachypnea slightly improved. Plan for ALS transport. <Dalia Richey, - Last Filed: 08/08/24 04:01> Lab Data Labs: Lab Results 08/07/24 08/07/24 08/07/24 Range/Units 16:00 16:19 17:55 WBC 14.4 H (4.5-11.0) X10^3/uL RBC 4.15 L (4.5-5.9) X10^6/uL Hgb 12.2 L (13.5-17.5) g/dL Hct 37.2 L (41-53) % MCV 89.7 (80-100) fL MCH 29.4 (26-34) PG MCHC 32.8 (30-36) % RDW 18.4 H (11.6-14.8) % Plt Count 353 (150-400) X10^3/uL Neut % (Auto) Not Reportable Lymph % (Auto) Not Reportable [place] % (Auto) Not Reportable Eos % (Auto) Not Reportable Baso % (Auto) Not Reportable Lymph # (Auto) Not Reportable [place] # (Auto) Not Reportable Baso # (Auto) Not Reportable Total Counted 100 Seg Neutrophils % 65.0 (38-70) % Band Neutrophils % 9.0 H (3-7) % Lymphocytes % (Manual) 18.0 L (25-45) % Monocytes % (Manual) 5.0 (2-11) % Metamyelocytes % 3.0 H (-0) % Neutrophils # (Manual) 44047 H (9686-4312) /uL RBC Morphology See below Anisocytosis 2+ H PT 11.9 (9.4-12.5) SECONDS INR 1.0 (0.9-1.3) ABG pH 7.50 H (7.35-7.45) ABG pCO2 31.1 L (35-45) mmHg ABG pO2 73 L (80-100) mmHg ABG HCO3 24 (23-27) mmol/L ABG Total CO2 24 (23-27) mmol/L ABG O2 Saturation 96 (95-100) % ABG Base Excess 1.9 (-2-3) mmol/L Chaz Test Positive O2 Delivery Device Cannula FiO2 % 28.0 % % Sodium 135 L (137-145) mmol/L Potassium 2.6 L* (3.4-5.1) mmol/L Chloride 93 L (98-107) mmol/L Carbon Dioxide 29 (22-32) mmol/L BUN 7 L (9-20) mg/dL Creatinine 0.63 L (0.66-1.25) mg/dL Estimated GFR > 60 (>60) mL/min BUN/Creatinine Ratio 11.1 (6-22) Glucose 167 H (80-110) mg/dL Lactate 2.6 H (0.7-2.1) mmol/L Calcium 8.6 (8.4-10.2) mg/dL Total Bilirubin 0.8 (0.2-1.3) mg/dL AST 23 (17-59) IU/L ALT 12 (<50) IU/L Alkaline Phosphatase 97 (38-126) U/L Troponin I 0.020 (0.01-0.034) ng/mL NT-Pro-B Natriuret Pep 583 H (<125) pg/mL Total Protein 6.0 L (6.3-8.2) g/dL Albumin 3.0 L (3.5-5.0) g/dL Globulin 3.0 (1.7-4.1) g/dL Albumin/Globulin Ratio 1.0 (1.0-2.8) Chlamy pneumoniae PCR Not detected (Not Detect) Adenovirus (PCR) Not detected (Not Detect) B. pertussis DNA (PCR) Not detected (Not Detect) B.parapertussis DNA PCR Not detected (Not Detecte) Coronavirus OC43 (PCR) Not detected (Not Detect) Coronavirus HKU1 (PCR) Not detected (Not Detect) Coronavirus 229E (PCR) Not detected (Not Detect) SARS-CoV-2 (PCR) Not detected (Not Detecte) Coronavirus NL63 (PCR) Not detected (Not Detect) Human Metapneumovir PCR Not detected (Not Detect) Influenza Type A (PCR) Not detected (Not Detect) Influenza Type B (PCR) Not detected (Not Detect) M. pneumoniae (PCR) Not detected (Not Detect) Parainfluenza 1 (PCR) Not detected (Not Detect) Parainfluenza 2 (PCR) Not detected (Not Detect) Parainfluenza 3 (PCR) Not detected (Not Detect) Parainfluenza 4 (PCR) Not detected (Not Detect) RSV (PCR) Not detected (Not Detect) Entero/Rhino (PCR) Not detected (Not Detect) 08/07/24 Range/Units 18:07 WBC (4.5-11.0) X10^3/uL RBC (4.5-5.9) X10^6/uL Hgb (13.5-17.5) g/dL Hct (41-53) % MCV (80-100) fL MCH (26-34) PG MCHC (30-36) % RDW (11.6-14.8) % Plt Count (150-400) X10^3/uL Neut % (Auto) Lymph % (Auto) [place] % (Auto) Eos % (Auto) Baso % (Auto) Lymph # (Auto) [place] # (Auto) Baso # (Auto) Total Counted Seg Neutrophils % (38-70) % Band Neutrophils % (3-7) % Lymphocytes % (Manual) (25-45) % Monocytes % (Manual) (2-11) % Metamyelocytes % (-0) % Neutrophils # (Manual) (0794-4348) /uL RBC Morphology Anisocytosis PT (9.4-12.5) SECONDS INR (0.9-1.3) ABG pH (7.35-7.45) ABG pCO2 (35-45) mmHg ABG pO2 (80-100) mmHg ABG HCO3 (23-27) mmol/L ABG Total CO2 (23-27) mmol/L ABG O2 Saturation (95-100) % ABG Base Excess (-2-3) mmol/L Chaz Test O2 Delivery Device FiO2 % % Sodium (137-145) mmol/L Potassium (3.4-5.1) mmol/L Chloride (98-107) mmol/L Carbon Dioxide (22-32) mmol/L BUN (9-20) mg/dL Creatinine (0.66-1.25) mg/dL Estimated GFR (>60) mL/min BUN/Creatinine Ratio (6-22) Glucose (80-110) mg/dL Lactate 2.4 H (0.7-2.1) mmol/L Calcium (8.4-10.2) mg/dL Total Bilirubin (0.2-1.3) mg/dL AST (17-59) IU/L ALT (<50) IU/L Alkaline Phosphatase (38-126) U/L Troponin I 0.015 (0.01-0.034) ng/mL NT-Pro-B Natriuret Pep (<125) pg/mL Total Protein (6.3-8.2) g/dL Albumin (3.5-5.0) g/dL Globulin (1.7-4.1) g/dL Albumin/Globulin Ratio (1.0-2.8) Chlamy pneumoniae PCR (Not Detect) Adenovirus (PCR) (Not Detect) B. pertussis DNA (PCR) (Not Detect) B.parapertussis DNA PCR (Not Detecte) Coronavirus OC43 (PCR) (Not Detect) Coronavirus HKU1 (PCR) (Not Detect) Coronavirus 229E (PCR) (Not Detect) SARS-CoV-2 (PCR) (Not Detecte) Coronavirus NL63 (PCR) (Not Detect) Human Metapneumovir PCR (Not Detect) Influenza Type A (PCR) (Not Detect) Influenza Type B (PCR) (Not Detect) M. pneumoniae (PCR) (Not Detect) Parainfluenza 1 (PCR) (Not Detect) Parainfluenza 2 (PCR) (Not Detect) Parainfluenza 3 (PCR) (Not Detect) Parainfluenza 4 (PCR) (Not Detect) RSV (PCR) (Not Detect) Entero/Rhino (PCR) (Not Detect) MDM Narrative Medical decision making narrative: 73-year-old male with history of COPD, prior episode of atrial fibrillation, history of lymphoma, March 2024 CTA study showed obstructive pneumonia changes, was given antibiotics at that time, transferred to [facility] for further evaluation. No discharged home or information available. Patient believes he has history of lymphoma including lung cancer, unclear if there are 2 primary cancers or if lymphoma involves long as well. Records request from [facility]. He has not usually on oxygen, has low sats by EMS, currently on 2 liters/minute oxygen. In respiratory distress with respiratory rate 30s. Previous evaluation March did not tolerate BiPAP due to trigeminal neuralgia facial pain. ABG requested. EKG, chest x-ray, labs pending. CTA chest ordered if GFR favorable, evaluate masses, and/or blood clots, increased risks due to underlying neoplasia. Chest x-ray shows right-sided pulmonary infiltrate, see radiology report. IV ceftriaxone, p.o. doxycycline, after blood cultures. Respiratory panel negative. GFR favorable, CTA chest order placed. 1814, CTA Chest report pending, singed out to Dr Richey 08/07/24 Dr. Richey: Patient signed out to myself CTA was pending, lactate and troponin are also pending. Patient is tachypneic, short of breath, decreased right greater than left. History was reviewed patient was seen and independently evaluated by myself. He notes that he does not wish for intubation. CTA shows no acute PE, interval placement and oblique real stent in the right mainstem bronchus with intraluminal soft tissue density. Complete collapse of right middle lobe consistent with previously reported right hilar mass increased mass effect on proximal segments right pulmonary artery without evidence for occlusion suggest continued disease progression right hilar mass feels more prominent, multiple large mediastinal lymph nodes compressive atelectasis involving right upper and middle lobes. Partially imaged right adrenal mass before. Improved but persistent ground-glass opacities left hemothorax could represent infectious or inflammatory process. Patient states Dr. Dyer through the [facility] has been trying to get him to their facility. He would prefer to go there if available he had original stent in his long placed [facility] around March of 2024. Discussed patient is currently on 2 L but still quite tachypneic may require high-flow at some point but has not so far. Dr. Mccauley, hospitalist at [facility] reviewed patient, she will consult with stock supervisor about ICU placement. Re-contacted and patient was accepted by Dr. Mccauley for transfer to [facility]. [facility] states they will arrange transport. Recheck prior to transport, patient is still tachypneic has not had any increasing O2 requirements has not had increased work of breathing they tachypnea slightly improved. Plan for ALS transport. Critical Care Time <Dalia Richey, DO - Last Filed: 08/08/24 04:01> Critical Care Time Critical Care Time: Yes Total Critical Care Time: 30 Attestation: The high probability of a clinically significant, sudden or life threatening deterioration of the cardiac, pulmonary system(s) required my full and direct attention, intervention and personal management. The aggregate critical care time was [--] minutes. This time is in addition to time spent performing reported procedures but includes the following: [x] Data Review and interpretation [x] Patient assessment and monitoring of vital signs [x] Documentation [x] Medication orders and management Discharge Plan Departure Patient Disposition: [facility] Clinical Impression: Pneumonia, History of lung cancer, Hypoxia, Hypokalemia
[2024-08-07 17:15] LABS: Adenovirus Not Detected (Not Detect); B. parapertussis Not Detected (Not Detecte); Bordetella pertussis Not Detected (Not Detect); Chlamydophila pneumoniae Not Detected (Not Detect); Coronavirus 229E Not Detected (Not Detect); Coronavirus HKU1 Not Detected (Not Detect); Coronavirus NL 63 Not Detected (Not Detect); Coronavirus OC43 Not Detected (Not Detect); Human Metapneumovirus Not Detected (Not Detect); Human Rhinovirus/Enterovirus Not Detected (Not Detect); Influenza A Not Detected (Not Detect); Influenza B Not Detected (Not Detect); Mycoplasma pneumoniae Not Detected (Not Detect); Parainfluenza Virus 1 Not Detected (Not Detect); Parainfluenza Virus 2 Not Detected (Not Detect); Parainfluenza Virus 3 Not Detected (Not Detect); Parainfluenza Virus 4 Not Detected (Not Detect); Respiratory Syncytial Virus Not Detected (Not Detect); SARS- CoV-2 Not Detected (Not Detecte)
[2024-08-07] MEDS: POTASSIUM CHLORIDE 20 MEQ/15 ML UDC 40 MEQ PO (17:16)
[2024-08-07] MEDS: cefTRIAXone 1,000 MG in SODIUM CHLORIDE 0.9% 100 ML 200 MG IV (17:22)
[2024-08-07] MEDS: DOXYCYCLINE HYCLATE 100 MG TABLET PO (17:22)
[2024-08-07 17:38] LABS: Reflexed Lactate in 2 Hours Y
[2024-08-07 17:58] LABS: Allen Test for ABG Passed? Positive; Base Excess ABG 1.9 mmol/L (-2-3); Delivery System Cannula; HCO3 ABG 24 mmol/L (23-27); Oxygen Saturation ABG 96 % (95-100); PCO2 ABG 31.1 mmHg (35-45); PO2 ABG 73 mmHg (80-100); TCO2 ABG 24 mmol/L (23-27)
--- NOTE | 2024-08-07 18:01 | DI.CT.S_ITS ---
PROCEDURE: CT ANGIO CHEST PE PROTOCOL INDICATIONS: dyspnea, lung cancer, pneumonia TECHNIQUE: After the administration of intravenous contrast, 2 mm thick sections acquired from the pulmonary apices to the posterior costophrenic angles. 3-dimensional maximum intensity projection (MIP) coronal and sagittal reformats were then acquired through the thorax. For radiation dose reduction, the following was used: automated exposure control, adjustment of mA and/or kV according to patient size. COMPARISON: [facility], CT, CT ANGIO CHEST PE PROTOCOL, 04/27/2024, 15:58. FINDINGS: Image quality: Diagnostic. Pulmonary arteries: Pulmonary arteries are normal in size, and demonstrate no intraluminal filling defects to suggest central pulmonary embolism. Lower Neck: No enlarged lymph nodes. Thyroid: No thyroid nodules which require sonographic follow up, per consensus guidelines. Axillae: No enlarged lymph nodes. Chest Wall: Unremarkable. Bones: Unremarkable. Lungs and Pleura: Continued interval increase of large right pleural effusion. Interval placement of stent within the right mainstem bronchus with opacification material within the stent. There is complete collapse of the right lower lobe secondary to obstructing right hilar mass previously described. There is also increased mass effect upon the proximal segments of the right lower lobe pulmonary arteries without visible occlusion. Compressive atelectasis of the right upper lobe and right middle lobe. Persistent but improved appearance of ground-glass opacities of the left hemithorax. Patchy ground-glass opacities in the periphery of the left lower lobe and left upper lobe may represent an infectious or inflammatory process. Airways are clear on the left. No septal thickening or nodularity. Heart: Heart size is normal. Trace pericardial effusion. Thoracic Vessels: No aortic aneurysm. Mediastinum and Molly: Mild interval enlargement of right hilar mass. Persistent enlarged mediastinal lymph nodes. Esophagus: No wall thickening. No hiatal hernia. Upper Abdomen: Partially imaged right adrenal mass. Visualized portions of the upper abdomen appear stable. Visualized upper abdomen solid organs and bowel loops appear normal. IMPRESSION: No acute pulmonary embolus. Interval placement of endobronchial stent within the right mainstem bronchus with intraluminal soft tissue density. There is complete collapse of the right middle lobe consistent with previously reported right hilar mass. There is increased mass effect upon the proximal segments of the right pulmonary artery without evidence for occlusion. Findings suggest continued disease progression. Right hilar mass appears more prominent. Relatively stable appearance of multiple large mediastinal lymph nodes. Compressive atelectasis involving the right upper and middle lobes. Partially imaged right adrenal mass as before. Improved but persistent ground-glass opacities of the left hemithorax which may represent an infectious or inflammatory process. Dictated by: Phu Butts M.D. on 08/07/2024 at 18:34 Approved by: Phu Butts M.D. on 08/07/2024 at 18:44
[2024-08-07] MEDS: POTASSIUM CHLORIDE IN WATER 10 MEQ/100 ML PIGGYBACK 100 MEQ IV ×2 (18:43→19:41)
[2024-08-07 19:43] LABS: Lactate 2HR (Lactic Acid Rflx) 2.4 mmol/L (0.7-2.1)
[2024-08-07 19:55] LABS: Troponin I 0.015 ng/mL (0.01-0.034)
--- NOTE | 2024-08-07 20:46 | PC.NURSE ---
Pt accepted at the [facility]. Accepting Dr. Abdul, Report [place] [phone]. MO to coordinate transport and will c/b with ETA Intake fax # [phone]
[2024-08-08] VITALS: BP 106/58; PULSE 93; RESP 27; O2SAT 91
[2024-08-08 00:30] VITALS: BP 112/57; PULSE 90; RESP 22; RESP 26; O2SAT 97; O2SAT 98
--- NOTE | 2024-08-08 00:58 | PC.NURSE ---
Care transferred to [facility] transport team. Report given/questions answered.
== END 2024-08-08 01:23 | disposition short-term general hospital (02) ==
PROVIDERS: Emergency Medicine; Emergency Provider Emergency Medicine
DX: J18.9 Pneumonia, unspecified organism (principal); R09.02 Hypoxemia; E87.6 Hypokalemia; R00.0 Tachycardia, unspecified; C34.90 Malignant neoplasm of unspecified part of unspecified bronchus or lung; Z11.52 Encounter for screening for COVID-19
CPT/HCPCS: 36415; 36600; 71045; 71275; 80053; 83605; 83880; 84484; 85007; 85025; 85610; 87040; 87633; 93005; 96365; 96366; 96367; 96375; 99285; 99291; J0696; J2919; Q9967